=== PATIENT | female | born 1975 | race Caucasian/White ===

== ENCOUNTER → 2017-06-15 | Outpatient (CLI) | payer BC ==
--- NOTE | 2017-06-17 10:04 | RAD ---
EXAM DESCRIPTION: Abdomen Series CLINICAL HISTORY: 41 years,Female,UNSPECIFIED ABDOMINAL PAIN COMPARISON: None FINDINGS: Bowel gas pattern is nonspecific. There is no evidence of free air or significant air-fluid levels. Bony elements are unremarkable. No evidence of radiopaque stones along the course of the kidneys or ureters. Fallopian tube in the right IMPRESSION: Unremarkable flat upright abdomen. Electronically signed by: Antolin Ivan MD 06/17/2017 10:03 AM CDT
== END | disposition home or self-care (01) ==
LOC: LAB.O 14:54
PROVIDERS: ATTEND Nurse Practitioner Family
DX: R10.9 Unspecified abdominal pain (principal)

== ENCOUNTER → 2017-06-17 | Outpatient (CLI) | payer BC | END | disposition home or self-care (01) | LOC: LAB.O 20:41 | PROVIDERS: ATTEND Nurse Practitioner Family | DX: R19.7 Diarrhea, unspecified (principal) ==

== ENCOUNTER → 2017-07-06 | Outpatient (CLI) | payer BC | LOC: LAB.O 10:28 | PROVIDERS: ATTEND Internal Medicine Gastroenterology | DX: R19.7 Diarrhea, unspecified (principal) ==

== ENCOUNTER → 2020-10-29 | Outpatient (CLI) | payer OTHER ==
--- NOTE | 2020-10-29 19:39 | MAM ---
EXAM DESCRIPTION: 3D Diagnostic, Bilateral (accession [id number]), Breast,Bilateral (accession [id number]): Ultrasound CLINICAL HISTORY: 45 yearsFemaleSCREEN "dark" blood nipple discharge began a few weeks ago. Nonspontaneous. Discharge with expression/compression. Palpable mass upper outer quadrant anterior right breast. Remote family history of breast cancer. No personal history of breast cancer. Menarche age 12. First childbirth age 18. Menopause age unknown. No HRT. Second Covid vaccination October 04. Lifetime risk of developing breast cancer (Tyrer-Cuzick model)(%): 6.3. COMPARISON: None. TECHNIQUE: Bilateral LM, CC, and MLO projection full-field images, digital tomosynthesis technique. Bilateral 2-D digital full-field images: LM, CC, and MLO projections. CAD available for 2-D images.. Transcutaneous scanning of the bilateral breast utilizing peraza-scale and Doppler modes. Scanning performed by the tea room manager ; observation by Dr. Harris. FINDINGS: The breast parenchymal density pattern is: Scattered areas of fibroglandular density. Axillary nodes. Solitary microcalcifications. Fibroglandular tissue is more dense in the left breast on the right. Partially circumscribed mass less than 1 cm diameter 9:00 middle third left breast approximately 7 cm from the nipple. Dilated ducts and small circumscribed masses in the retroareolar right breast. No the location of the triangular skin marker. No mass is palpable. No skin thickening or nipple retraction Ultrasound: Scanning of the right breast 4 cm from the nipple at 11:00 where the skin marker was located. Mostly fatty echotexture. Minimal fibroglandular tissues. No sonographic abnormality. Scanning at the 3:00-9:00 axis left breast, 8 cm from the nipple. Hypoechoic versus anechoic circumscribed mass with thin borders measuring 8.3 x 4.6 x 6.7 cm. A second mass with similar appearance in the adjacent soft tissues measures 10 x 8.8 mm. Similar imaging characteristics. Cysts versus lymph nodes. Nonvascular. No fluid collection, dominant solid mass, large calcifications. No overlying skin changes. Scanning the retroareolar right breast. Multiple dilated ducts are seen. Cystic structures which appear to communicate with the ducts are visualized. These are not vascular. No definite intraductal mass or debris is visualized. No dominant solid mass, no large calcifications in the right breast. No overlying skin changes. IMPRESSION: BIRAD CATEGORY 4: SUSPICIOUS. Sub-category 4A - Low Suspicion For Malignancy. RECOMMENDATION: Surgical consultation and tissue diagnosis if there are no clinical contraindications. The FINDINGS and FOLLOW-UP plan were reviewed in person with the patient following the examination. Written communication explaining the IMPRESSION and FOLLOW-UP will be mailed to the patient and referring health care provider. Electronically signed by: Deniz Harris MD 10/29/2020 7:37 PM [facility]
== END ==
LOC: MAMMO 07:44
PROVIDERS: ATTEND Family Medicine
DX: R92.8 Other abnormal and inconclusive findings on diagnostic imaging of breast (principal)
CPT/HCPCS: 76641; 77066; G0279